=== PATIENT | male | born 1960 | race Native Hawaiian/Other Pacific Islander ===

== ENCOUNTER 2017-06-28 11:36 | Outpatient (CLI) | payer OTHER ==
[2017-06-28] MEDS ORDERED: HYDR10TA47 PO (15:12)
== END 2017-06-28 11:45 | disposition short-term general hospital (02) ==
LOC: AMB 11:36
DX: S06.0X0A Concussion without loss of consciousness, initial encounter (principal); V49.9XXA Car occupant (driver) (passenger) injured in unspecified traffic accident, initial encounter; Y93.89 Activity, other specified; Y92.89 Other specified places as the place of occurrence of the external cause; Y99.8 Other external cause status
CPT/HCPCS: A0425; A0427

== ENCOUNTER 2017-06-28 11:45 | Emergency (ER) | payer OTHER ==
[~2017-06-28] VITALS: Ht 172.7 cm; Wt 88.5 kg
[2017-06-28 11:45] VITALS: BP 133/82; TEMP 98.2
[2017-06-28 12:20] LABS: PLATELET COUNT 253 K/uL (142-355)
[2017-06-28 12:29] LABS: POTASSIUM 3.6 mmol/L (3.6-5.2)
[2017-06-28] MEDS ORDERED: HYDR10TA47 PO (15:12)
== END 2017-06-28 15:06 | disposition home or self-care (01) ==
LOC: ED 11:45
PROVIDERS: Emergency Medicine
DX: R22.0 Localized swelling, mass and lump, head (principal); I44.4 Left anterior fascicular block; M25.552 Pain in left hip; V49.40XA Driver injured in collision with unspecified motor vehicles in traffic accident, initial encounter
CPT/HCPCS: 80053; 80320; 82550; 84484; 85027; 93005; 99283